=== PATIENT | male | born 1945 | race Caucasian/White ===

== ENCOUNTER 2021-04-27 10:37 | Emergency (ER) | payer OTHER, MEDICARE ==
[~2021-04-27] VITALS: Ht 193 cm; Wt 107.5 kg
[~2021-04-27 10:37] MED LIST: AMLODIPINE BESY10 MG PO; ASPIR 8181 MG PO; ASPIRIN EC325 MG PO; HEALTHYLAX17 GM PO; OXYCODONE HCL5 MG PO; SENNA LAX8.6 MG PO; TYLENOL EXTRA500 MG PO; ZESTRIL40 MG PO
[2021-04-27] MEDS ORDERED: TRANSDERM-SCOP1 EACH TD (12:31)
== END 2021-04-27 12:50 | disposition home or self-care (01) ==
LOC: ED 10:37
DX: R42 Dizziness and giddiness (principal); Z88.2 Allergy status to sulfonamides; Z79.899 Other long term (current) drug therapy; W19.XXXA Unspecified fall, initial encounter
CPT/HCPCS: 70450; 99283